=== PATIENT | female | born 1980 | race Caucasian/White ===

== ENCOUNTER 2016-12-30 15:49 | Inpatient (IN) | payer OTHER ==
[~2016-12-30] VITALS: Ht 170.2 cm; Wt 68.0 kg
[~2016-12-30 15:49] MED LIST: BACTRIM,SEPT1 TABLET PO; KEFLEX500 MG PO; MOTRIN800 MG PO
[2016-12-30 17:03] LABS: ADD MIUA? YES; BILIRUBIN NEGATIVE; BLOOD NEGATIVE; COLOR YELLOW ((YELLOW)); GLUCOSE (STRIP) NEGATIVE; KETONES NEGATIVE; LEUKOCYTES NEGATIVE; NITRITE NEGATIVE; PROTEIN (STRIP) 30; SPECIFIC GRAVITY 1.017 (1.000-1.030); UROBILINOGEN 0.2 MG/DL (0.2-1.0)
[2016-12-30 17:07] LABS: HEMATOCRIT 30.4 % (36.0-46.0); MCH 24.7 PG (29.0-34.0); MCHC 31.6 G/DL (30.0-36.0); MCV 78.4 FL (83-99); MEAN PLAT.VOLUME 9.3 uM^3 (9.5-12.4); PLATELET COUNT 344 K/uL (156-360); RBC DIS.WIDTH-CV 16.5 % (11.8-14.6); RBC DIS.WIDTH-SD 47.3 % (39-53); RED BLOOD COUNT 3.88 M/uL (3.80-5.20); WHITE BLOOD COUNT 12.6 K/uL (4.1-10.2)
[2016-12-30 17:14] LABS: CHLORIDE 108 mEq/L (99-109); SODIUM 137 mEq/L (136-147)
[2016-12-30 17:16] LABS: GLUCOSE 86 mg/dL (70-99)
[2016-12-30 17:17] LABS: BACTERIA RARE /HPF; EPITHELIAL CELLS 1+ /HPF; HYALINE CASTS 0-5 /LPF; MUCUS 2+ /LPF; RED BLOOD CELLS 0-5 /HPF (0-5); UCUL ADDED? NO; WHITE BLOOD CELLS 0-5 /HPF (0-5)
[2016-12-30 17:18] LABS: ANION GAP 8 MEQ/L (2-14)
[2016-12-30 17:19] LABS: SERUM ETHYL ALCOHOL < 10 mg/dL
[2016-12-30 17:20] LABS: GFR ESTIMATE (CALCULATED) > 59 mL/min/
[2016-12-30 17:21] LABS: UREA NITROGEN (BUN) 7 mg/dL (9-23)
[2016-12-30 17:33] LABS: AMPHETAMINE NEGATIVE (500 ng/mL); BARBITURATES NEGATIVE (200 ng/mL); BENZODIAZEPINES PRESUMPTIVE POSITIVE (150 ng/mL); COCAINE PRESUMPTIVE POSITIVE (150 ng/mL); INTERNAL CONTROLS VALID? YES; METHADONE NEGATIVE (200 ng/mL); METHAMPHETAMINE NEGATIVE (500 ng/mL); OPIATES (MORPHINE) PRESUMPTIVE POSITIVE (100 ng/mL); OXYCODONE NEGATIVE (100 ng/mL); PHENCYCLIDINE NEGATIVE (25 ng/mL); PROPOXYPHENE NEGATIVE (300 ng/mL); THC CANNABINOIDS NEGATIVE (50 ng/mL); TRICYCLIC ANTIDEPRESSANTS NEGATIVE (300 ng/mL)
[2016-12-30 17:34] LABS: ADD MEDTOX COMMENT Y
[2016-12-30 17:48] LABS: QUANTITATIVE HCG 23773.9 MIU/ML
[2016-12-30 18:07] LABS: BENZODIAZEPINES, URINE SCREEN POSITIVE (200 ng/mL)
[2016-12-30] MEDS ORDERED: OXYMORPHONE HCL30 MG PO (18:36)
[2016-12-30] MEDS ORDERED: PRENATAL TABLE1 EAC3 PO (18:37)
[2016-12-30] MEDS ORDERED: OXYCODONE HCL15 MG PO (18:37)
[2016-12-30 19:47] VITALS: BP 107/60
[2016-12-30 19:48] VITALS: BP 107/60
[2016-12-31 07:42] VITALS: BP 113/60
== END 2016-12-31 14:41 | disposition left against medical advice (07) | DRG 781 ==
LOC: EME 15:49 → 1WEST 17:44 → EDOF 17:44 → ENRESERV 18:27 → 1WEST 19:41
PROVIDERS: Physician Assistant
DX: O99.342 Other mental disorders complicating pregnancy, second trimester (principal); F43.20 Adjustment disorder, unspecified; O99.322 Drug use complicating pregnancy, second trimester; F11.23 Opioid dependence with withdrawal; Z3A.20 20 weeks gestation of pregnancy; Z91.5 Personal history of self-harm
CPT/HCPCS: 80048; 81003; 84702; 84999; 85027; 90839; 99281; 99285; G0480